=== PATIENT | female | born 1995 | race Hispanic/Latino ===

== ENCOUNTER 2022-07-20 14:27 | Emergency (ER) | payer OTHER ==
[~2022-07-20] VITALS: Ht 152.4 cm; Wt 65.8 kg
[2022-07-20] MEDS ORDERED: SODIUM CHLORIDE 0.9% 1000ML 1,000 ML IV STA (14:47)
[2022-07-20] MEDS ORDERED: ONDANSETRON HCL INJ 2MG/ML 2ML 2 MG/ML VIAL IV STA (14:47)
[2022-07-20] MEDS ORDERED: ONDANSETRON HCL INJ 2MG/ML 2ML 2 MG/ML VIAL IV PRN (15:00)
[2022-07-20] MEDS ORDERED: DICYCLOMINE HCL 20 MG/2 ML VIAL IM ONE (15:00)
[2022-07-20 15:07] LABS: BASOPHILS # (AUTO) 0.1 (0.0-0.1); BASOPHILS % 0.4 % (0.0-1.0); EOSINOPHILS # (AUTO) 0.1 (0.0-0.4); EOSINOPHILS % 0.9 % (0.0-6.0); HEMATOCRIT 42.1 % (34.2-44.1); HEMOGLOBIN 13.3 g/dL (12.0-16.0); LYMPHOCYTES # (AUTO) 1.8 (1.0-3.2); LYMPHOCYTES % 12.9 % (18.0-39.1); MEAN CORPUSCULAR HEMOGLOBIN 27.4 pg (28-32); MEAN CORPUSCULAR HGB CONC 31.6 g/dL (31-35); MEAN CORPUSCULAR VOLUME 86.8 fL (81-99); MONOCYTES % 7.3 % (4.4-11.3); NEUTROPHILS # (AUTO) 10.9 (2.1-6.9); NEUTROPHILS % 78.1 % (38.7-80.0); PLATELET COUNT 323 x10e3/uL (140-360); RED BLOOD COUNT 4.85 x10e6/uL (3.6-5.1)
[2022-07-20 15:27] LABS: ALANINE AMINOTRANSFERASE 9 IU/L (0-55); ALBUMIN 4.2 g/dL (3.5-5.0); ALBUMIN/GLOBULIN RATIO 1.2 (0.8-2.0); ALKALINE PHOSPHATASE 63 IU/L (40-150); ANION GAP 12.6 mmol/L (8-16); BLOOD UREA NITROGEN 10 mg/dL (7-26); BUN/CREATININE RATIO 14 (6-25); CALCIUM 9.3 mg/dL (8.4-10.2); CARBON DIOXIDE 24 mmol/L (22-29); CHLORIDE 104 mmol/L (98-107); CREATININE, SERUM 0.72 mg/dL (0.57-1.11); GLUCOSE 84 mg/dL (74-118); LIPASE 47 U/L (8-78); POTASSIUM 3.6 mmol/L (3.5-5.1); SODIUM 137 mmol/L (136-145)
[2022-07-20 16:00] LABS: CLARITY,URINE SL CLOUDY (CLEAR); COLOR,URINE YELLOW (YELLOW)
[2022-07-20 16:01] LABS: LEUKOCYTE ESTERASE ,URINE MODERATE (NEGATIVE); NITRITE,URINE POSITIVE (NEGATIVE); PROTEIN,URINE DIPSTICK >=300 (NEGATIVE)
[2022-07-20 16:02] LABS: KETONES,URINE 1+ (NEGATIVE); URINE UROBILINOGEN 1 mg/dL (0.2 - 1)
[2022-07-20 16:11] LABS: BACTERIA,URINE MODERATE /HPF; EPITHELIAL CELLS,URINE FEW /LPF; RBC,URINE >50 /HPF (0-5); WBC,URINE (MAN) 21-50 /HPF (0-5)
[2022-07-20] MEDS ORDERED: CEFDINIR300 MG PO (16:35)
[2022-07-20] MEDS ORDERED: ONDANSETRON ODT4 MG PO (16:46)
[2022-07-20] MEDS ORDERED: DICYCLOMINE HCL20 MG PO (16:46)
[2022-07-20 17:08] VITALS: BP 119/80; PULSE 83; RESP 18; TEMP 98.7; O2SAT 99
== END 2022-07-20 17:09 | disposition home or self-care (01) ==
LOC: ER 14:35
DX: R50.9 Fever, unspecified (principal); K52.9 Noninfective gastroenteritis and colitis, unspecified; N39.0 Urinary tract infection, site not specified; R11.2 Nausea with vomiting, unspecified; M54.50 Low back pain, unspecified
CPT/HCPCS: 36415; 80053; 81001; 83690; 84702; 85025; 99283; J0500; J2405; J7030